=== PATIENT | female | born 1975 | race Caucasian/White ===

== ENCOUNTER 2018-05-08 00:14 | Emergency (ER) | payer SELFPAY ==
[~2018-05-08] VITALS: Ht 162.6 cm; Wt 86.4 kg
[2018-05-08 00:16] VITALS: Ht 162.6 cm; Wt 86.4 kg
[2018-05-08 01:14] VITALS: BP 122/88
== END 2018-05-08 01:15 ==
LOC: D.ER 00:14
DX: S81.812A Laceration without foreign body, left lower leg, initial encounter (principal); Y04.2XXA Assault by strike against or bumped into by another person, initial encounter; Y93.89 Activity, other specified; Y92.019 Unspecified place in single-family (private) house as the place of occurrence of the external cause; S00.212A Abrasion of left eyelid and periocular area, initial encounter

== ENCOUNTER 2018-05-08 14:13 | Emergency (ER) | payer MEDICAID ==
[~2018-05-08] VITALS: Ht 162.6 cm; Wt 86.4 kg
[2018-05-08 14:32] VITALS: BP 116/81; Ht 162.6 cm; Wt 86.4 kg
== END 2018-05-08 16:15 | disposition left against medical advice (07) ==
LOC: D.ER 14:13
DX: S81.812A Laceration without foreign body, left lower leg, initial encounter (principal); Y04.2XXA Assault by strike against or bumped into by another person, initial encounter; Y93.89 Activity, other specified; Y92.019 Unspecified place in single-family (private) house as the place of occurrence of the external cause; S00.212A Abrasion of left eyelid and periocular area, initial encounter